=== PATIENT | female | born 1965 | race Caucasian/White ===

== ENCOUNTER → 2024-08-06 | Outpatient (CLI) | payer OTHER ==
[~2024-08-06] MED LIST: AMOCLA875 PO; Percocet 10-321 EACH PO; VISBIOME 112.51 EACH PO
[2024-08-06 14:39] LABS: BASOPHILS ABSOLUTE AUTO 0.02 K/mm3 (0.00-0.23); BASOPHILS PERCENT AUTO 0 % (0-2); EOSINOPHILS PERCENT AUTO 0 % (0-6); Hematocrit 43.7 % (33.0-51.0); IMMATURE GRAN ABSOLUTE AUTO 0.14 K/mm3 (0.00-0.10); IMMATURE GRAN PERCENT AUTO 1 % (0-1); LYMPHOCYTES ABSOLUTE AUTO 0.73 K/mm3 (0.84-5.20); LYMPHOCYTES PERCENT AUTO 4 % (21-46); MONOCYTES ABSOLUTE AUTO 0.96 K/mm3 (0.16-1.47); MONOCYTES PERCENT AUTO 6 % (4-13); Mean Corpuscular HGB 30.7 pg (26.0-34.0); Mean Corpuscular HGB Conc 34.3 g/dL (31.5-36.5); Mean Corpuscular Volume 89 fL (80-100); Mean Platelet Volume 10.6 fL (9.1-12.4); NEUTROPHILS ABSOLUTE AUTO 14.94 K/mm3 (1.96-9.15); NEUTROPHILS PERCENT AUTO 89 % (41-73); Platelet Count 288 K/mm3 (150-400); RDW Standard Deviation 38.8 fL (35.1-46.3); Red Blood Cell Count 4.89 M/mm3 (3.80-5.20); White Blood Cell Count 16.79 K/mm3 (4.00-11.30)
[2024-08-06 14:40] LABS: Albumin, Blood 3.7 g/dL (3.4-5.0); Albumin/Globulin Ratio 0.8 (0.8-1.8); Bilirubin, Total 0.9 mg/dL (0.1-1.0); Bun/Creatinine Ratio 14.6 (12.0-20.0); Creatinine, Blood 1.03 mg/dL (0.40-1.00); Globulin, Blood 4.9 g/dL (2.2-4.0); Potassium, Blood 3.7 mmol/L (3.5-5.5); Total Protein, Blood 8.6 g/dL (6.4-8.2)
[2024-08-06 15:22] LABS: Calcium, Blood 9.9 mg/dL (8.5-10.1)
== END | disposition home or self-care (01) ==
LOC: LAB 14:22 → LAB SHORT 14:22
PROVIDERS: Physician Assistant
DX: R10.9 Unspecified abdominal pain (principal)
CPT/HCPCS: 80053; 83690; 85025

== ENCOUNTER 2024-08-10 12:06 | Inpatient (IN) | payer OTHER ==
[~2024-08-10] VITALS: Ht 162.6 cm; Wt 83.5 kg
[2024-08-10 13:06] LABS: BASOPHILS ABSOLUTE AUTO 0.05 K/mm3 (0.00-0.23); BASOPHILS PERCENT AUTO 0 % (0-2); EOSINOPHILS ABSOLUTE AUTO 0.19 K/mm3 (0.00-0.68); EOSINOPHILS PERCENT AUTO 1 % (0-6); Hematocrit 36.8 % (33.0-51.0); Hemoglobin 12.5 g/dL (11.5-16.0); IMMATURE GRAN ABSOLUTE AUTO 0.18 K/mm3 (0.00-0.10); IMMATURE GRAN PERCENT AUTO 1 % (0-1); LYMPHOCYTES ABSOLUTE AUTO 1.71 K/mm3 (0.84-5.20); LYMPHOCYTES PERCENT AUTO 12 % (21-46); MONOCYTES ABSOLUTE AUTO 1.04 K/mm3 (0.16-1.47); MONOCYTES PERCENT AUTO 7 % (4-13); Mean Corpuscular HGB 31.4 pg (26.0-34.0); Mean Corpuscular Volume 93 fL (80-100); Mean Platelet Volume 10.3 fL (9.1-12.4); NEUTROPHILS ABSOLUTE AUTO 11.58 K/mm3 (1.96-9.15); NEUTROPHILS PERCENT AUTO 79 % (41-73); Platelet Count 265 K/mm3 (150-400); RDW Coefficient Variation 12.1 % (11.7-14.2); Red Blood Cell Count 3.98 M/mm3 (3.80-5.20); White Blood Cell Count 14.75 K/mm3 (4.00-11.30)
[2024-08-10 13:26] LABS: Albumin, Blood 2.3 g/dL (3.4-5.0); Albumin/Globulin Ratio 0.5 (0.8-1.8); Bilirubin, Total 0.7 mg/dL (0.1-1.0); Creatinine, Blood 0.75 mg/dL (0.40-1.00); Globulin, Blood 4.7 g/dL (2.2-4.0); Potassium, Blood 3.8 mmol/L (3.5-5.5)
[2024-08-10] MEDS ORDERED: Morphine Sulfate 4 MG/1 ML Injection IV ONE (13:40)
[2024-08-10] MEDS ORDERED: Ondansetron HCl 2 MG / ML 2ML Vial IV ONE (13:40)
[2024-08-10] MEDS ORDERED: Ampicillin Sod/Sulbactam Sod 3 GM in NS 100 ML IV ONE (13:45)
[2024-08-10] MEDS ORDERED: Ondansetron HCl 2 MG / ML 2ML Vial IV PRN (15:10)
[2024-08-10] MEDS ORDERED: FLU VACC TS2024-25(6MOS UP)/PF 45 MCG/0.5 ML SYRINGE IM SCH (15:15)
[2024-08-10] MEDS ORDERED: Morphine Sulfate 4 MG/1 ML Injection IV PRN (15:15)
[2024-08-10] MEDS ORDERED: Piperacillin/Tazobactam Sod 3.375 GM in NS 100 ML IV ONE (15:25)
[2024-08-10] MEDS ORDERED: NS 1,000 ML IV SCH (16:00)
[2024-08-10 16:53] VITALS: BP 115/67
--- NOTE | 2024-08-10 17:00 | NUR ---
ARRIVAL NOTE PT IS A/O X4, IND, VOIDING. PT REPORTS PAIN IS TOLERABLE. IV FLUIDS RUNNING ORDERED. VSS. DR. BALDERAS NOTIFIED OF CONSULT. CALL LIGHT IN REACH.
[2024-08-10] MEDS ORDERED: Piperacillin/Tazobactam Sod 3.375 GM in NS 100 ML IV SCH (18:00)
[2024-08-10 20:16] VITALS: BP 124/67
[2024-08-11] VITALS (24 sets, daily range): BP systolic 107–155; BP diastolic 59–97
[2024-08-11 04:29] LABS: BASOPHILS ABSOLUTE AUTO 0.07 K/mm3 (0.00-0.23); BASOPHILS PERCENT AUTO 1 % (0-2); EOSINOPHILS ABSOLUTE AUTO 0.29 K/mm3 (0.00-0.68); EOSINOPHILS PERCENT AUTO 2 % (0-6); Hematocrit 36.4 % (33.0-51.0); Hemoglobin 12.1 g/dL (11.5-16.0); IMMATURE GRAN ABSOLUTE AUTO 0.19 K/mm3 (0.00-0.10); IMMATURE GRAN PERCENT AUTO 2 % (0-1); LYMPHOCYTES ABSOLUTE AUTO 1.13 K/mm3 (0.84-5.20); LYMPHOCYTES PERCENT AUTO 10 % (21-46); MONOCYTES ABSOLUTE AUTO 0.86 K/mm3 (0.16-1.47); MONOCYTES PERCENT AUTO 7 % (4-13); Mean Corpuscular HGB 31.3 pg (26.0-34.0); Mean Corpuscular HGB Conc 33.2 g/dL (31.5-36.5); Mean Corpuscular Volume 94 fL (80-100); NEUTROPHILS PERCENT AUTO 79 % (41-73); Platelet Count 232 K/mm3 (150-400); RDW Coefficient Variation 12.2 % (11.7-14.2); RDW Standard Deviation 42.5 fL (35.1-46.3); Red Blood Cell Count 3.87 M/mm3 (3.80-5.20); White Blood Cell Count 11.94 K/mm3 (4.00-11.30)
[2024-08-11 04:47] LABS: International Normalized Ratio 1.02; Prothrombin Time Results 10.9 Sec (9.7-11.5)
[2024-08-11 05:12] LABS: Albumin/Globulin Ratio 0.5 (0.8-1.8); Bilirubin, Total 0.8 mg/dL (0.1-1.0); Bun/Creatinine Ratio 18.3 (12.0-20.0); Calcium, Blood 8.5 mg/dL (8.5-10.1); Creatinine, Blood 0.71 mg/dL (0.40-1.00); Globulin, Blood 4.4 g/dL (2.2-4.0); Potassium, Blood 3.9 mmol/L (3.5-5.5); Total Protein, Blood 6.4 g/dL (6.4-8.2)
--- NOTE | 2024-08-11 05:35 | NUR ---
SHIFT SUMMARY A/OX4, VSS. IVF AND ABX INFUSING PER ORDERS. NPO SINCE MIDNIGHT. IND IN ROOM. DENIED NEED FOR PAIN MEDICATION T/O SHIFT. PT CURRENTLY RESTING IN BED WITH CALL LIGHT IN REACH. PLAN FOR POTENTIAL SURGERY TODAY. WILL GIVE REPORT TO ONCOMING RN.
[2024-08-11] MEDS ORDERED: Heparin Sodium 5000 Units/ML 1ML MDV SC SCH (09:00)
[2024-08-11] MEDS ORDERED: Bupivacaine 0.5% HCl 5 MG/ML 30MLVIAL ONE (11:29)
[2024-08-11] MEDS ORDERED: Lactated Ringer's 1,000 ML IV ONE (11:50)
[2024-08-11] MEDS ORDERED: FentaNYL Citrate 50 MCG/ML 2 ML Injection ONE ×3 (12:39→15:02)
[2024-08-11] MEDS ORDERED: propofoL 20 ML IV ONE (12:39)
[2024-08-11] MEDS ORDERED: Dexamethasone Sod Phos 10 MG/ML 1ML VIAL ONE (12:40)
[2024-08-11] MEDS ORDERED: Ondansetron HCl 2 MG / ML 2ML Vial ONE ×2 (12:40→15:02)
[2024-08-11] MEDS ORDERED: Rocuronium Bromide 10 MG/ML 5ML Injection IV ONE ×2 (12:40→13:25)
[2024-08-11] MEDS ORDERED: Sugammadex Sodium 200 MG/2ML SDV (100 MG/ML) ONE (13:43)
[2024-08-11] MEDS ORDERED: OxyCODONE 10/Acetamin 325 TABLET PO PRN (14:35)
[2024-08-11] MEDS ORDERED: Ketorolac Tromethamine 30mg Vial IV PRN (14:40)
[2024-08-11] MEDS ORDERED: HYDROmorphone HCl/Pf 1MG SYR ONE (15:25)
[2024-08-11] MEDS ORDERED: Prochlorperazine Edisylate 10 mg Vial ONE (15:39)
--- NOTE | 2024-08-11 16:10 | NUR ---
PT ARRIVED TO THE ROOM AT APPROXIMATELY 1605. PT ALERT/ORIENTED UPON ARRIVAL. SHE DENIES NAUSEA. PT RATES PAIN AT 10/10 BUT IS ABLE TO DISTRACT FROM PAIN AND MOBILIZE. PT TRANSFERRED WITH MINIMAL ASSISTANCE FROM THE [facility] [place]. CALL LIGHT PLACED WITHIN REACH. FAMILY AT BEDSIDE FOR SUPPORT.
--- NOTE | 2024-08-11 20:05 | NUR ---
SHIFT SUMMARY PT IS POD#[address] BALDERAS. PT HAS CORA DRAIN PRESENT TO RUQ, SANGUINEOUS DRAINAGE. PT HAS BEEN ABLE TO AMBULATE IN THE ROOM. SHE IS TOLERATING CLEAR LIQUIDS. PAIN MANAGED WITH PO PAIN MEDICATION. VSS. BEDSIDE REPORT GIVEN TO MARIAM FAIRBANKS.
[2024-08-12 04:25] LABS: BASOPHILS ABSOLUTE AUTO 0.06 K/mm3 (0.00-0.23); BASOPHILS PERCENT AUTO 0 % (0-2); EOSINOPHILS ABSOLUTE AUTO 0.01 K/mm3 (0.00-0.68); EOSINOPHILS PERCENT AUTO 0 % (0-6); Hematocrit 35.6 % (33.0-51.0); Hemoglobin 11.6 g/dL (11.5-16.0); IMMATURE GRAN ABSOLUTE AUTO 0.29 K/mm3 (0.00-0.10); IMMATURE GRAN PERCENT AUTO 2 % (0-1); LYMPHOCYTES ABSOLUTE AUTO 0.97 K/mm3 (0.84-5.20); LYMPHOCYTES PERCENT AUTO 5 % (21-46); MONOCYTES ABSOLUTE AUTO 0.52 K/mm3 (0.16-1.47); MONOCYTES PERCENT AUTO 3 % (4-13); Mean Corpuscular HGB Conc 32.6 g/dL (31.5-36.5); Mean Corpuscular Volume 95 fL (80-100); Mean Platelet Volume 10.3 fL (9.1-12.4); NEUTROPHILS ABSOLUTE AUTO 16.96 K/mm3 (1.96-9.15); NEUTROPHILS PERCENT AUTO 90 % (41-73); Platelet Count 278 K/mm3 (150-400); RDW Coefficient Variation 12.5 % (11.7-14.2); RDW Standard Deviation 43.7 fL (35.1-46.3); Red Blood Cell Count 3.74 M/mm3 (3.80-5.20); White Blood Cell Count 18.81 K/mm3 (4.00-11.30)
[2024-08-12 04:56] LABS: Albumin/Globulin Ratio 0.5 (0.8-1.8); Bilirubin, Total 0.6 mg/dL (0.1-1.0); Bun/Creatinine Ratio 16.9 (12.0-20.0); Calcium, Blood 8.3 mg/dL (8.5-10.1); Creatinine, Blood 0.83 mg/dL (0.40-1.00); Globulin, Blood 4.3 g/dL (2.2-4.0); Potassium, Blood 4.4 mmol/L (3.5-5.5); Total Protein, Blood 6.3 g/dL (6.4-8.2)
[2024-08-12 05:01] VITALS: BP 109/60
--- NOTE | 2024-08-12 06:09 | NUR ---
SHIFT SUMMARY POD 1 S/P LAP TERRA. INCISION SITES CLOSED AND DRY. CORA DRAINING SS FLUID, BULB COMPRESSED. ABX INFUSING PER ORDERS. PT TOLERATING PO INTAKE, DENIES N/V. PAIN MANAGED PER EMAR. PT IND IN ROOM. IS VOIDING. ENCOURAGED AMBULATION TOLERATED. PT CURRENTLY RESTING IN BED WITH CALL LIGHT IN REACH. WILL GIVE REPORT TO ONCOMING RN.
[2024-08-12 07:19] VITALS: BP 105/64
--- NOTE | 2024-08-12 09:51 | NUR ---
MORNING NOTE THIS RN ASSUMED CARE AT APPROX 0715. PATIENT ALERT AND ORIENTED X4. COMMUNICATING NEEDS EFFECTIVELY. INDEPENDENT IN ROOM. VSS. SBP 100s-110s. MAP >65. ASYMPTOMATIC. ON ROOM AIR, SATs >90%. RR EVEN, UNLABORED. POD 1 LAP TERRA W/ X3 LAP SITES. MINIMAL SEROSANGUINOUS DRAINAGE FROM SITES. CORA DRAIN W/ SANGUINOUS DRAINAGE. MANAGING PAIN PER EMAR. TOLERATING REGULAR DIET. PATIENT SHOWERED THIS MORNING. CALL LIGHT IN REACH.
[2024-08-12 15:11] VITALS: BP 92/56
--- NOTE | 2024-08-12 16:38 | NUR ---
SHIFT SUMMARY NO ACUTE CHANGES SINCE MORNING NOTE. MD BALDERAS ROUNDED TODAY - SWITCHED TO PO ABX. NO IV ACCESS OKAY PER MD. VSS. SBP 90s-100s. MAP >65. PATIENT ASYMPTOMATIC - INDEPENDENT IN ROOM, COMMUNICATES NEEDS EFFECTIVELY. REMAINS ON ROOM AIR, SATs >90%. POD 1 FOR LAP TERRA - X3 LAP SITES C/D/I. CORA DRAIN WITH MODERATE SANGUINOUS DRAINAGE. PAIN MANAGED PER EMAR. DENIES FLATULENCE OR BM. VOIDING. CALL LIGHT IN REACH. WILL CONTINUE TO MONITOR AND REPORT TO ONCOMING RN.
[2024-08-12 20:11] VITALS: BP 127/61
[2024-08-12] MEDS ORDERED: Amoxicillin/Clavulanate K 875 MG Tab PO SCH (21:00)
[2024-08-13 02:46] VITALS: BP 128/69
[2024-08-13 05:51] LABS: BASOPHILS ABSOLUTE AUTO 0.07 K/mm3 (0.00-0.23); BASOPHILS PERCENT AUTO 1 % (0-2); EOSINOPHILS ABSOLUTE AUTO 0.21 K/mm3 (0.00-0.68); EOSINOPHILS PERCENT AUTO 1 % (0-6); Hematocrit 33.8 % (33.0-51.0); Hemoglobin 10.8 g/dL (11.5-16.0); IMMATURE GRAN PERCENT AUTO 5 % (0-1); LYMPHOCYTES ABSOLUTE AUTO 0.85 K/mm3 (0.84-5.20); LYMPHOCYTES PERCENT AUTO 6 % (21-46); MONOCYTES ABSOLUTE AUTO 0.47 K/mm3 (0.16-1.47); MONOCYTES PERCENT AUTO 3 % (4-13); Mean Corpuscular HGB 30.6 pg (26.0-34.0); Mean Corpuscular Volume 96 fL (80-100); Mean Platelet Volume 10.3 fL (9.1-12.4); NEUTROPHILS ABSOLUTE AUTO 13.08 K/mm3 (1.96-9.15); NEUTROPHILS PERCENT AUTO 85 % (41-73); Platelet Count 270 K/mm3 (150-400); RDW Coefficient Variation 12.6 % (11.7-14.2); RDW Standard Deviation 44.5 fL (35.1-46.3); Red Blood Cell Count 3.53 M/mm3 (3.80-5.20); White Blood Cell Count 15.38 K/mm3 (4.00-11.30)
[2024-08-13 06:19] LABS: Albumin, Blood 1.9 g/dL (3.4-5.0); Albumin/Globulin Ratio 0.4 (0.8-1.8); Bilirubin, Total 0.6 mg/dL (0.1-1.0); Bun/Creatinine Ratio 19.4 (12.0-20.0); Calcium, Blood 8.2 mg/dL (8.5-10.1); Creatinine, Blood 0.77 mg/dL (0.40-1.00); Globulin, Blood 4.3 g/dL (2.2-4.0); Potassium, Blood 4.1 mmol/L (3.5-5.5); Total Protein, Blood 6.2 g/dL (6.4-8.2)
--- NOTE | 2024-08-13 06:39 | NUR ---
SHIFT SUMMARY NOC. PT POD 2 FOR [facility] WITH PERF. PT A/O X4. PT MEDICATED FOR PAIN WITH ORALS X2 TIMES. REPORTED RELIEF OF SX. PT AMBULATORY AND INDEPENDENT IN ROOM. PT VOIDING URINE. CORA DRAIN DRAINING SANGINEOUS DRAINAGE AND FREE OF KINKS. PT MAKES NEEDS KNOWN, CALL LIGHT IN REACH.
[2024-08-13 07:22] VITALS: BP 128/63
--- NOTE | 2024-08-13 10:27 | NUR ---
MORNING NOTE THIS RN ASSUMED CARE AT APPROX 0715. PATIENT ALERT AND ORIENTED X4. INDEPENDENT IN ROOM. COMMUNICATES NEEDS EFFECTIVELY. MANAGING PAIN PER EMAR WITH REPORTED RELIEF. POD 2 LAP TERRA X3 LAP SITES WITH DRIED SEROSANGUINOUS DRAINAGE AROUND SITES - OTHERWISE C/D/I. VOIDING. TOLERATING PO INTAKE. REPORTS SOME FLATULENCE BUT DENIES BM. CORA DRAIN DRAINING SANGUINOUS DRAINAGE. HOSPITALIST AT BEDSIDE THIS MORNING - ABLE TO DC HOME FROM THEIR END. MD BALDERAS CONTACTED - MD TO ROUND THIS AFTERNOON AND PULL CORA DRAIN. PATIENT SHOWERED THIS MORNING. CALL LIGHT IN REACH.
[2024-08-13] MEDS ORDERED: AMOCLA875 PO (12:57)
[2024-08-13] MEDS ORDERED: Percocet 10-321 EACH PO (12:58)
[2024-08-13] MEDS ORDERED: VISBIOME 112.51 EACH PO (12:59)
--- NOTE | 2024-08-13 13:56 | NUR ---
DISCHARGE NOTE NO ACUTE CHANGES SINCE PREVIOUS NOTE. MD BALDERAS AT BEDSIDE THIS AFTERNOON - PATIENT TO DC HOME WITH CORA DRAIN AND FOLLOW UP ON MONDAY. HOSPITALIST NOTIFIED - DC HOME ORDERED. VSS. POD 2 LAP TERRA - X3 SITES C/D/I. PAIN MANAGED WITH PRESCRIBED THERAPY. DENIES BM, BUT IS REPORTING SOME FLATULENCE. VOIDING. TOLERATING PO INTAKE. PATIENT AGREEABLE WITH DC. EDUCATION PROVIDED, INCLUDING CORA DRAIN MANAGEMENT AT HOME. PATIENT STATES UNDERSTANDING. HARD SCRIPT FOR PRESCRIBED NARCOTIC PROVIDED. PATIENT TRANSFERRED TO PERSONAL VEHICLE VIA WHEELCHAIR AT APPROX 1345. PERSONAL BELONGINGS WITH PATIENT.
== END 2024-08-13 13:45 | disposition home or self-care (01) | DRG 419 ==
LOC: ER 12:06 → SURS 15:10
PROVIDERS: Physician Assistant; Surgery; ADMIT Family Medicine
PROC: 0FT44ZZ Resection of Gallbladder, Percutaneous Endoscopic Approach (ICD-10-PCS; principal; 2024-08-11 12:00)
DX: K80.62 Calculus of gallbladder and bile duct with acute cholecystitis without obstruction (principal); K82.A1 Gangrene of gallbladder in cholecystitis; R00.1 Bradycardia, unspecified; F10.10 Alcohol abuse, uncomplicated; R74.8 Abnormal levels of other serum enzymes; Z87.59 Personal history of other complications of pregnancy, childbirth and the puerperium; Z98.51 Tubal ligation status; Z87.891 Personal history of nicotine dependence; Z98.890 Other specified postprocedural states; E66.9 Obesity, unspecified; Z68.31 Body mass index [BMI] 31.0-31.9, adult
CPT/HCPCS: 36415; 76705; 80053; 83690; 85025; 85610; 88304; 93005; 93010; 96365; 96375; 99285-25; A9270; C1729; J0295; J0780; J1100; J1171; J1885; J2270; J2405; J2543; J2704; J3010; J7030; J7120